=== PATIENT | female | born 1940 | race Caucasian/White ===

== ENCOUNTER → 2016-10-03 | Outpatient (CLI) | payer OTHER, MEDICARE | LOC: BMCIMAGING 15:01 | PROVIDERS: ATTEND Internal Medicine Rheumatology | DX: M20.11 Hallux valgus (acquired), right foot (principal); M20.12 Hallux valgus (acquired), left foot; M15.4 Erosive (osteo)arthritis ==

== ENCOUNTER → 2016-12-19 | Outpatient (CLI) | payer OTHER, MEDICARE | LOC: FIMAGING 13:08 | PROVIDERS: ATTEND Internal Medicine Rheumatology | DX: Z13.820 Encounter for screening for osteoporosis (principal); M85.80 Other specified disorders of bone density and structure, unspecified site ==

== ENCOUNTER → 2017-04-23 | Outpatient (CLI) | payer OTHER, MEDICARE | LOC: BHFA 14:00 | PROVIDERS: ATTEND Internal Medicine Cardiovascular Disease | DX: I35.9 Nonrheumatic aortic valve disorder, unspecified (principal); I71.9 Aortic aneurysm of unspecified site, without rupture ==

== ENCOUNTER → 2017-12-18 | Outpatient (CLI) | payer OTHER, MEDICARE | LOC: BMCIMAGING 15:40 | PROVIDERS: ATTEND Internal Medicine Rheumatology | DX: M19.041 Primary osteoarthritis, right hand (principal); M19.042 Primary osteoarthritis, left hand; M19.071 Primary osteoarthritis, right ankle and foot; M19.072 Primary osteoarthritis, left ankle and foot; M20.11 Hallux valgus (acquired), right foot; M20.12 Hallux valgus (acquired), left foot ==

== ENCOUNTER → 2018-04-14 | Outpatient (CLI) | payer OTHER, MEDICARE | LOC: FIMAGING 11:09 | PROVIDERS: ATTEND Internal Medicine | DX: Z13.820 Encounter for screening for osteoporosis (principal); M85.89 Other specified disorders of bone density and structure, multiple sites ==

== ENCOUNTER → 2018-04-26 | Outpatient (CLI) | payer OTHER, MEDICARE | LOC: BHFA 11:30 | PROVIDERS: ATTEND Internal Medicine Cardiovascular Disease | DX: I35.8 Other nonrheumatic aortic valve disorders (principal) ==